=== PATIENT | female | born 1980 | race Caucasian/White ===

== ENCOUNTER → 2019-05-24 13:56 | Outpatient (CLI) | payer OTHER, SELFPAY ==
[2019-05-24 16:00] LABS: Absolute Lymphocyte Count 1.19 X10^3/uL (0.83-4.51); Absolute Neutrophil Count 2.6 X10^3/uL (2.0-7.7); Basophil# 0.03 X10^3/uL; Basophil% 0.7 % (0-1); Eosinophil# 0.09 X10^3/uL; Hematocrit 43.7 % (37-47); Hemoglobin 14.4 g/dL (12.0-15.0); Lymphocyte # 1.19 X10^3/ul (4.0); Lymphocyte % 26.9 % (19-41); Mean Corpuscular Hgb 31.7 pg (27.0-32.0); Mean Corpuscular Volume 96.3 fL (81-99); Mean Platelet Vol. 10.6 fl (6.2-12.0); Monocyte# 0.47 X10^3/uL; Monocyte% 10.6 % (0-10); NRBC Flagged by Analyzer 0 % (0-5); Neutrophil # 2.63 X10^3/uL (2.7-7.7); Neutrophil % 59.6 % (47-70); Platelet Count 198 K/mm3 (150-450); RBC Distribution Width CV 12.2 % (11.6-14.6); RBC Distribution Width SD 42.9 fl (35.1-43.9); Red Blood Count 4.54 M/mm3 (4.2-5.4); White Blood Count 4.4 K/mm3 (4.4-11.0)
[2019-05-24 16:11] LABS: ALB/GLOB Ratio 1.2 RATIO (0.9-2.4); AST(SGOT) 25 U/L (15-37); Alanine Aminotransfer ALT/SGPT 42 U/L (13-56); Albumin, Serum 3.8 g/dL (3.2-5.0); Alkaline Phosphatase 48 U/L (45-117); Anion Gap 8 (5-15); BUN 13 mg/dL (7-18); BUN/Creat Ratio 15.4 RATIO (10-20); Calcium,Total 8.9 mg/dL (8.5-10.1); Chloride 106 mmol/L (98-107); Creatinine, Serum 0.84 mg/dL (0.55-1.02); EST Glomerular Filtration Rate 81 mL/min (>60); Est Glom Filt Rate - Afr Amer 98 mL/min (>60); Free T3 5.2 pg/mL (2.18-3.98); Globulin 3.3 g/dL (2.2-4.2); Glucose 83 mg/dL (74-106); Potassium 3.8 mmol/L (3.5-5.1); Protein, Total 7.1 g/dL (6.4-8.2); Sodium Level 140 mmol/L (136-145); T4 Free Direct 2.39 ng/dL (0.76-1.46); Thyroid Stim Hormone (TSH) 0.07 uIU/mL (0.358-3.74)
== END ==
PROVIDERS: PCP Family Medicine; Referring Provider Family Medicine; Visit Provider Family Medicine
DX: D75.1 Secondary polycythemia (principal); E03.9 Hypothyroidism, unspecified
CPT/HCPCS: 36415; 80053; 84439; 84443; 84481; 85025

== ENCOUNTER 2019-06-05 22:15 | Emergency (ER) | payer OTHER, SELFPAY ==
[2019-06-05 22:15] VITALS: BP 126/75; PULSE 57; RESP 18; TEMP 36.3; O2SAT 99; BMI 23.1
--- NOTE | 2019-06-05 22:54 | CT_ITS ---
STUDY: CT ABDOMEN AND PELVIS WITHOUT CONTRAST REASON FOR EXAM: Female, 38 years old. ABD PAIN AND CRAMPING WITH N/V RADIATION DOSAGE (If Supplied By Facility): CTDIvol = ( 10.02 ) mGy, DLP = ( 328.03 ) mGycm TECHNIQUE: Transaxial images were obtained from the dome of the diaphragm to the symphysis pubis without oral contrast, and without intravenous contrast. Sagittal and coronal images were reconstructed. Individualized dose optimization techniques were used for this CT. COMPARISON: None. FINDINGS: The visualized lung bases are unremarkable. The visualized portions of the heart are within normal limits. Breast implants. Normal liver. Normal gallbladder and extrahepatic biliary system. Normal spleen. Normal pancreas. Normal bilateral adrenal glands. Normal right kidney. 2 mm nonobstructing left renal stone. Normal visualized stomach. Normal small intestine. Probable constipation. There is non-visualization of the appendix. Normal abdominal aorta. Normal inferior vena cava. Normal retroperitoneum. Normal urinary bladder. IUD. Normal abdominal wall. Normal osseous structures. CT/Abdomen/Pelvis W IV Cont ONLY IMPRESSION: No evidence of acute intestinal pathology or acute obstructive uropathy. Probable constipation. Electronically Signed: Jeramy Belle MD at 0:01 EST Tel , Service support ,
--- NOTE | 2019-06-05 22:55 | ED.DCSUM_ITS ---
History of Present Illness Chief Complaint: Abd Pain Narrative: This patient is a 38-year-old female who presents with abdominal pain. She had diarrhea all day yesterday. She developed epigastric abdominal discomfort this morning. Her pain acutely worsened and became severe in the last couple of hours. She vomited shortly before presentation here. No fevers. No history of prior similar symptoms. She only ate some rice and vegetable soup today. She denies alcohol use. No history of GERD. She describes the pain is sharp. It waxes and wanes. Her only abdominal surgery is a history of tubal ligation with salpingectomy which she believes was on the left. She is otherwise treated for hypothyroidism. She is currently on antibiotics since last week for a finger infection. No vaginal bleeding or discharge, she does have Mirena. No urinary symptoms such as dysuria, frequency, urgency. 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 Smoking Status: Never smoker Review of Systems All systems negative except as indicated General: Denies: Fever Eyes: Denies: Visual changes - bilaterally ENT: Denies: Bilateral ear pain Cardiovascular: Denies: Chest pain Respiratory: Denies: Dyspnea Gastrointestinal: Reports: Abdominal pain, Nausea, Vomiting, Diarrhea Musculoskeletal: Denies: Myalgias, Arthralgias Skin: Denies: Rash Neurological: Denies: Headache Endocrine: Denies: Polyuria Hematologic: Denies: Easy bruising Allergy: Denies: Uticaria Physical Exam Vital Signs/Narrative: Vital Signs Temp Pulse Resp BP Pulse Ox 06/05/19 22:15 97.3 F L 57 L 18 126/75 H 99 Inital Vital Signs reviewed: Yes General: Well nourished, Well developed Head: Normocephalic Eyes: EOMI ENT: Moist mucous membranes Neck: Supple Cardiovascular: Regular rate, Regular rhythm Respiratory: No distress, CTA bilaterally Abdomen: Soft, - - Diffuse nonfocal abdominal tenderness which is greatest across the upper abdomen, no focal right upper quadrant pain no Nash's sign or Rovsing sign Extremities: Nontender Skin: Normal color Neurological: Alert Psychological: Normal affect Diagnostic/Tx/Re-eval Impressions Abdomen/Pelvis CT 06/05/19 22:54 IMPRESSION: No evidence of acute intestinal pathology or acute obstructive uropathy. Probable constipation. Electronically Signed: Jeramy Belle MD at 0:01 EST Tel , Service support , 06/05/19 22:54 Abdomen/Pelvis W IV Cont ONLY [CT] Stat Laboratory Results 06/05/19 06/05/19 06/05/19 22:45 22:45 23:00 WBC 9.1 RBC 4.96 Hgb 15.8 H Hct 47.2 H MCV 95.2 MCH 31.9 MCHC 33.5 RDW Std Deviation 40.5 RDW Coeff of Scotty 11.7 Plt Count 235 MPV 10.2 Immature Gran % (Auto) 0.400 Neut % (Auto) 73.0 H Lymph % (Auto) 18.0 L [place] % (Auto) 7.0 Eos % (Auto) 1.2 Baso % (Auto) 0.4 Absolute Neuts (auto) 6.6 Absolute Lymphs (auto) 1.63 Nucleated RBC % 0 Sodium Potassium Chloride Carbon Dioxide Anion Gap BUN Creatinine Estim Creat Clear Calc Est GFR (MDRD) Af Amer Est GFR (MDRD) Non-Af BUN/Creatinine Ratio Glucose Calcium Total Bilirubin AST ALT Alkaline Phosphatase Total Protein Albumin Globulin Albumin/Globulin Ratio Lipase Urine Color Yellow Urine Clarity Clear Urine pH 5.0 Ur Specific [place] 1.025 Urine Protein Negative Urine Glucose (UA) Normal Urine Ketones Negative Urine Occult Blood Negative Urine Nitrite Negative Urine Bilirubin Negative Urine Urobilinogen Normal Ur Leukocyte Esterase Negative Urine RBC 0 SEEN Urine WBC 0 SEEN Ur Squamous Epith Cells 0-5 SEEN Urine Bacteria 0 SEEN Urine Mucus 0 SEEN Urine Test Negative 06/05/19 23:00 WBC RBC Hgb Hct MCV MCH MCHC RDW Std Deviation RDW Coeff of [place] Plt Count MPV Immature Gran % (Auto) Neut % (Auto) Lymph % (Auto) [place] % (Auto) Eos % (Auto) Baso % (Auto) Absolute Neuts (auto) Absolute Lymphs (auto) Nucleated RBC % Sodium 140 Potassium 4.2 Chloride 108 H Carbon Dioxide 26.0 Anion Gap 6 BUN 15 Creatinine 1.03 H Estim Creat Clear Calc 65.20 Est GFR (MDRD) Af Amer 78 Est GFR (MDRD) Non-Af 64 BUN/Creatinine Ratio 14.6 Glucose 93 Calcium 8.8 Total Bilirubin 0.40 AST 29 ALT 51 Alkaline Phosphatase 48 Total Protein 7.3 Albumin 4.0 Globulin 3.3 Albumin/Globulin Ratio 1.2 Lipase 127 Urine Color Urine Clarity Urine pH Ur Specific [place] Urine Protein Urine Glucose (UA) Urine Ketones Urine Occult Blood Urine Nitrite Urine Bilirubin Urine Urobilinogen Ur Leukocyte Esterase Urine RBC Urine WBC Ur Squamous Epith Cells Urine Bacteria Urine Mucus Urine Test - Medical Decision Making Patient was treated with IV fluids, morphine, Zofran. She is symptomatically improved on reevaluation she still has some discomfort but this is at a t olerable level. She is resting comfortably on reevaluation. She has had no further vomiting. CBC, CMP, lipase, urinalysis, CT of the abdomen and pelvis all unremarkable except for some constipation on imaging. was negative. I suspect this was related to bowel spasm. Patient will be provided with prescriptions for Zofran and Bentyl. She was given return precautions and understands to return for new or worsening symptoms and was advised on specific signs and symptoms that should prompt reevaluation. She is comfortable with this plan. Patient discharged. ED Disposition - Plan for ED Patient: Disposition: Home or Assisted Living Diagnosis: Abdominal pain Instructions: ABDOMINAL PAIN, Unknown Cause, (Female) Prescriptions: Dicyclomine HCl [Bentyl] 20 mg PO TIDAC #20 cap Prescription Printed Ondansetron [Zofran Odt] 4 mg PO Q8H PRN PRN #10 tab PRN Reason: Nausea Prescription Printed Referrals: Leo Alexandra MD [Primary Care Provider] -
[2019-06-05] MEDS: Morphine 4 MG/ML Syringe IV (23:05)
[2019-06-05] MEDS: Ondansetron 4 MG/2 ML Vial IV (23:05)
[2019-06-05 23:06] LABS: Bacteria 0 SEEN /hpf (None Seen); Mucous, Urine 0 SEEN /hpf (<or=2+); Red Blood Cells-Urine 0 SEEN /hpf (0-5); White Blood Cells 0 SEEN /hpf (0-5)
[2019-06-05] MEDS: 0.9% Normal Saline 1,000 ML 1000 ML IV (23:06)
[2019-06-05 23:09] LABS: Color, Urine Yellow (Yellow); Glucose, Dipstick Normal (Normal); Ketone-Dipstick Negative (Negative); Leukocyte Esterase-Dipstick Negative /ul (Negative); Nitrite-Dipstick Negative (Negative); Occult Blood-Urine Negative /ul (Negative); Protein-Dipstick Negative (Negative); Specific Gravity, Urine 1.025 (1.002-1.030); Urine Bilirubin Dipstick Negative (Negative); Urine Clarity Clear (Clear); Urine Urobilinogen Normal (Normal)
[2019-06-05 23:11] LABS: Internal QC Validated? YES +Cl - CLEAR BKGD
[2019-06-05 23:11] LABS: Absolute Lymphocyte Count 1.63 X10^3/uL (0.83-4.51); Absolute Neutrophil Count 6.6 X10^3/uL (2.0-7.7); Basophil# 0.04 X10^3/uL; Basophil% 0.4 % (0-1); Eosinophil# 0.11 X10^3/uL; Eosinophils% 1.2 % (0-5); Hematocrit 47.2 % (37-47); Hemoglobin 15.8 g/dL (12.0-15.0); Lymphocyte # 1.63 X10^3/ul (4.0); Mean Corp Hgb Conc 33.5 g/dL (32-36); Mean Corpuscular Hgb 31.9 pg (27.0-32.0); Mean Corpuscular Volume 95.2 fL (81-99); Mean Platelet Vol. 10.2 fl (6.2-12.0); Monocyte# 0.63 X10^3/uL; NRBC Flagged by Analyzer 0 % (0-5); Neutrophil # 6.61 X10^3/uL (2.7-7.7); Platelet Count 235 K/mm3 (150-450); RBC Distribution Width CV 11.7 % (11.6-14.6); RBC Distribution Width SD 40.5 fl (35.1-43.9); Red Blood Count 4.96 M/mm3 (4.2-5.4); White Blood Count 9.1 K/mm3 (4.4-11.0)
[2019-06-05 23:12] LABS: Pregnancy, Urine Negative Negative
[2019-06-05 23:19] LABS: Squamous Epithelial Cells - UA 0-5 SEEN /hpf (5-10)
[2019-06-05 23:23] LABS: ALB/GLOB Ratio 1.2 RATIO (0.9-2.4); AST(SGOT) 29 U/L (15-37); Alanine Aminotransfer ALT/SGPT 51 U/L (13-56); Alkaline Phosphatase 48 U/L (45-117); Anion Gap 6 (5-15); BUN 15 mg/dL (7-18); BUN/Creat Ratio 14.6 RATIO (10-20); Calcium,Total 8.8 mg/dL (8.5-10.1); Chloride 108 mmol/L (98-107); Creatinine, Serum 1.03 mg/dL (0.55-1.02); EST Glomerular Filtration Rate 64 mL/min (>60); Est Glom Filt Rate - Afr Amer 78 mL/min (>60); Globulin 3.3 g/dL (2.2-4.2); Glucose 93 mg/dL (74-106); Lipase 127 U/L (73-393); Potassium 4.2 mmol/L (3.5-5.1); Protein, Total 7.3 g/dL (6.4-8.2); Sodium Level 140 mmol/L (136-145)
[2019-06-06 01:00] VITALS: BP 101/44; PULSE 61; O2SAT 96
[2019-06-06] MEDS: Dicyclomine 10 MG Capsule 20 MG PO (01:33)
[2019-06-06 01:36] VITALS: BP 94/44; PULSE 59; RESP 15; O2SAT 98
== END 2019-06-06 01:36 | disposition home or self-care (01) ==
PROVIDERS: Emergency Provider Emergency Medicine; PCP Family Medicine
DX: R10.13 Epigastric pain (principal); R11.2 Nausea with vomiting, unspecified; R19.7 Diarrhea, unspecified; E03.9 Hypothyroidism, unspecified; Z79.899 Other long term (current) drug therapy
CPT/HCPCS: 74177; 80053; 81001; 81025; 83690; 85025; 96361; 96374; 96375; 99284; J7030; Q9967; J2405

== ENCOUNTER → 2019-08-29 15:30 | Outpatient (CLI) | payer SELFPAY ==
[2019-08-29 17:36] LABS: Absolute Lymphocyte Count 1.71 X10^3/uL (0.83-4.51); Absolute Neutrophil Count 4.6 X10^3/uL (2.0-7.7); Basophil# 0.03 X10^3/uL; Basophil% 0.4 % (0-1); Eosinophils% 1.4 % (0-5); Hematocrit 43.8 % (37-47); Hemoglobin 14.5 g/dL (12.0-15.0); Lymphocyte # 1.71 X10^3/ul (4.0); Lymphocyte % 24.6 % (19-41); Mean Corp Hgb Conc 33.1 g/dL (32-36); Mean Corpuscular Hgb 32.2 pg (27.0-32.0); Mean Corpuscular Volume 97.3 fL (81-99); Mean Platelet Vol. 10.7 fl (6.2-12.0); Monocyte# 0.55 X10^3/uL; Monocyte% 7.9 % (0-10); NRBC Flagged by Analyzer 0 % (0-5); Neutrophil # 4.55 X10^3/uL (2.7-7.7); Neutrophil % 65.4 % (47-70); Platelet Count 199 K/mm3 (150-450); RBC Distribution Width CV 12.4 % (11.6-14.6)
[2019-08-29 17:57] LABS: Ferritin 195 ng/mL (8-252); Iron 122 ug/dL (50-170); Iron Binding Capacity,Total 318 ug/dL (250-450)
[2019-08-29 18:24] LABS: Vitamin B12 498 pg/mL (211-911); Vitamin D,25 Hydroxy 32.4 ng/mL
[2019-08-30 09:37] LABS: T4 Free Direct 1.77 ng/dL (0.76-1.46); Thyroid Stim Hormone (TSH) 0.41 uIU/mL (0.358-3.74)
[2019-08-31 07:17] LABS: Transferrin 214 mg/dL (192-364)
== END ==
PROVIDERS: PCP Family Medicine; Visit Provider Family Medicine
DX: D75.1 Secondary polycythemia (principal); R53.83 Other fatigue; E03.9 Hypothyroidism, unspecified
CPT/HCPCS: 36415; 82306; 82607; 82728; 83540; 83550; 84439; 84443; 84466; 85025

== ENCOUNTER → 2023-07-11 | Outpatient (CLI) | payer SELFPAY ==
--- NOTE | 2023-07-11 07:38 | BI_ITS ---
MAMMOGRAPHY - BILATERAL SCREENING REASON FOR EXAM: Female, 42 years old. Routine annual screening examination. PERTINENT HISTORY: Non-contributory. Bilateral breast implants. TECHNIQUE: Digital bilateral breast sayda (3D mammographic acquisition) in the CC and MLO projections. 2-D mediolateral oblique (MLO) and craniocaudad (CC) views of both breasts were obtained. CAD: Full Field Digital Mammography with Computer Added Detection was performed. COMPARISON: None. Baseline examination. FINDINGS: Breast Composition: There are scattered areas of fibroglandular density. There are no dominant masses or suspicious calcifications. Bilateral breast implants are unremarkable. No other significant abnormalities are identified. BI/SCRN MAMM (CAD)W/SAYDA BILAT IMPRESSION: Negative screening mammogram. Yearly followup mammogram recommended. (A) ASSESSMENT CATEGORY: BIRADS Category 2: Benign. A letter regarding these results will be sent to the patient by the facility within 30 days. Approximately 10% of breast cancers are not detected by mammography. A normal mammogram should not delay biopsy of a clinically suspicious abnormality. [id number] Electronically Signed: Patrick Auguste MD at 10:34 EDT ,
--- OUTSIDE RECORDS SUMMARY | 2023-07-11 07:47 | XMS RPT_ITS | CCD ---
Author Name Unknown Address [address] [place] [address] Organization [facility] Care Team Providers Care Cathode Ray Tube Assembler Name Role Phone Brie Viera Unavailable Mandy Pandya Unavailable Unavailable Unavailable Unavailable Nina Cole Unavailable Unavailable Keely Nguyen Unavailable Unavailable Brie Viera DO Unavailable Cross SAWMILL OR TIMBER YARD WORKER, Keely Unavailable Unavailable Manchak CATALOGUE LIBRARIAN, Elsa Unavailable Unavailable Slarb SAWMILL OR TIMBER YARD WORKER, Niya Unavailable Unavailable Unavailable Unavailable Brie Viera DO Unavailable [phone] Annie Nash MA Unavailable Unavailable Gravius CATALOGUE LIBRARIAN, Teresa Unavailable Unavailable Austin CATALOGUE LIBRARIAN, Kayela Unavailable Unavailable Brie Viera DO Attending Unavailable Brie Viera DO Referring Unavailable Brie Viera DO Consulting Unavailable Medications Completed/Discontinued Medications Medication Drug Class(es) Dates Sig (Normalized) Sig (Original) cholecalciferol 0.05 mg oral capsule (13 sources) Vitamin D Start: 12-28-2013 End: 12-23-2014 take 1 capsule by mouth once daily VITAMIN D, 2000UNIT (Oral Capsule) 1 (one) Capsule Capsule qd for 360 days Refills: 0 Ordered: 29-Jan-2015 Isha Mo RN Start : 28-Dec-2013 End : 23-Dec-2014 Inactive levothyroxine sodium 0.2 mg oral tablet (13 sources) l-Thyroxine Start: 03-05-2022 Synthroid 200 MCG Oral Tablet tad Tablet 1 tab daily and 1.5 tabs on Tuesday, , and Tuesday for 0 days Quantity: 34 {Tablet} Refills: 6 Ordered: 05-Mar-2022 Brie Viera DO, DO, Kathleen Start : 05-Mar-2022 Active Dispense as Written Comments: RODOLFO Problems Active Problems Problem Classification Problem Date Documented Da te Episodic/Chronic Cardiac dysrhythmias (16 sources) Bradycardia; Translations: [Bradycardia] 11-26-2019 Chronic Cardiac dysrhythmias (20 sources) Bradycardia; Translations: [Bradycardia] 06-12-2020 Episodic Fluid and electrolyte disorders (20 sources) Dehydration; Translations: [Dehydration] Resolved: 11-26-2019 11-26-2019 Episodic Genitourinary symptoms and ill-defined conditions (16 sources) Dysuria; Translations: [Dysuria] 12-03-2020 Episodic Malaise and fatigue (20 sources) Fatigue; Translations: [Fatigue] 11-26-2019 Episodic Noninfectious gastroenteritis (20 sources) Gastroenteritis; Translations: [Gastroenteritis ] 06-07-2019 Episodic Nutritional deficiencies (20 sources) Vitamin D deficiency; Translations: [Vitamin D deficiency] 11-26-2019 Chronic Past or Other Problems Problem Classification Problem Date Documented Da te Episodic/Chronic Unclassified (14 sources) Hair loss Unclassified (13 sources) Abortions/Miscarriages; Translations: [Abortions/Miscarriages] 06-07-2019 Results Test Name Value Interpretation Reference Range Facil ity Vital Signs Date Time Vital Sign Value Performing Clinician Facility 06-12-2020 07:10-0500 BMI (Body Mass Index) 23.27 kg/m2 Keely Nguyen LPN [facility] Work Phone: 06-12-2020 07:10-0500 Body weight 59.59 kg Keely Nguyen LPN [facility] Work Phone: 06-12-2020 07:10-0500 BSA (Body Surface Area) 1.62 m2 Keely Nguyen LPN [facility]; [facility] Work Phone: 06-12-2020 07:10-0500 Height 160.02 cm Keely Nguyen LPN [facility] Work Phone: 06-07-2019 12:32-0500 BMI (Body Mass Index) 23.27 kg/m2 Mandy Pandya RN [facility] Work Phone: 06-07-2019 12:32-0500 Body weight 59.59 kg Mandy Pandya RN [facility] Work Phone: 06-07-2019 12:32-0500 BP Diastolic 60 mm[Hg] Mandy Pandya RN [facility] Work Phone: Encounters Encounter Date Encounter Type Care Provider Facility Start: 05-19-2022 ambulatory Brie Maximiliano [facility] Start: 05-19-2022 End: 05-19-2022 Office outpatient visit 15 minutes Brie Maximiliano DO Work Phone: [facility] Start: 04-28-2022 End: 04-28-2022 Phone Encounter Brie Maximiliano DO Work Phone: [facility] Start: 10-28-2021 End: 10-28-2021 Phone Encounter Brie Maximiliano DO Work Phone: [facility] Start: 08-13-2021 End: 08-13-2021 Lab Order Brie Maximiliano DO Work Phone: [facility] Start: 08-12-2021 End: 08-12-2021 Office outpatient visit 5 minutes Brie Maximiliano DO Work Phone: [facility] Start: 08-04-2021 End: 08-04-2021 Phone Encounter Brie Maximiliano DO Work Phone: [facility] Start: 12-03-2020 End: 12-12-2020 Phone Encounter Brie Maximiliano DO Work Phone: [facility] Start: 11-21-2020 End: 11-21-2020 Annotation/Addendum Brie Maximiliano DO Work Phone: [facility] Start: 06-12-2020 End: 06-12-2020 Office outpatient visit 25 minutes Brie Maximiliano [facility] Start: 06-02-2020 End: 06-02-2020 Phone Encounter Brie Maximiliano [facility] Start: 04-22-2020 End: 04-22-2020 Lab Order Brie Maximiliano [facility] Start: 11-26-2019 End: 11-26-2019 Office outpatient visit 15 minutes Brie Viera [facility] Start: 06-07-2019 End: 06-07-2019 Office outpatient visit 15 minutes Brie Viera [facility] Start: 06-30-2015 End: 06-30-2015 Office outpatient visit 5 minutes Brie Viera [facility] Start: 05-14-2015 End: 05-14-2015 Lab Order Brie Viera [facility] Start: 03-19-2014 End: 03-19-2014 Phone Encounter Brie Viera [facility] Start: 01-24-2014 End: 01-24-2014 Office outpatient visit 40 minutes Brieevan Viera [facility] Start: 12-28-2013 End: 12-28-2013 Office outpatient new 60 minutes Brie Maximiliano [facility] Procedures Date Procedure Procedure Detail Performing Clinician Total thyroidectomy Mandy Silvano Long Plan of Treatment Date Care Activity Detail Author Start: 05-19-2022 Procedure Education Eprescribed prescriptions (G8553) [facility]; [facility] Work Phone: Start: 05-19-2022 Provider Instructions for Treatment Reviewed Lab [facility]; [facility] Work Phone: Start: 05-19-2022 25 hydroxy includes fractions if performed CALCIFIDIOL (68994) VIT D 25 [facility]; [facility] Work Phone: Start: 05-19-2022 Cyanocobalamin vitamin b-12 VITAMIN B-12 (CYANOCOBALAMIN) (35509) [facility]; [facility] Work Phone: Start: 05-19-2022 Sedimentation rate rbc non-automated SED RATE ERYTHROCYTE (04327) [facility]; [facility] Work Phone: Start: 05-19-2022 Comprehensive metabolic panel METABOLIC PANEL, COMPREHENSIVE (52955) [facility]; [facility] Work Phone: Start: 05-19-2022 Blood count complete automated CBC (AUTO) (67510) [facility]; [facility] Work Phone: Start: 04-28-2022 Assay of thyroid stimulating hormone tsh TSH (THYROID STIMULATING HORMONE) (82685) [facility]; [facility] Work Phone: Start: 04-28-2022 Assay of triiodothyronine t3 free FREE TRIIDOTHYRONINE (T3) (96675) [facility]; [facility] Work Phone: Start: 04-28-2022 Microsomal antibodies each Anti TPO Antibody (60069) [facility]; [facility] Work Phone: Start: 08-13-2021 25 hydroxy includes fractions if performed CALCIFEDIOL (93217) [facility]; [facility] Work Phone: Start: 08-13-2021 Microsomal antibodies each Anti TPO Antibody (62594) [facility]; [facility] Work Phone: Start: 08-13-2021 Assay of triiodothyronine t3 free T3, FREE (TRIDOTHYRONINE) (72628) [facility]; [facility] Work Phone: Start: 08-13-2021 Assay of free thyroxine T4, FREE (THYROXINE) (35728) [facility]; [facility] Work Phone: Start: 08-13-2021 Assay of thyroid stimulating hormone tsh TSH (THYROID STIMULATING HORMONE) (63342) [facility]; [facility] Work Phone: Start: 08-04-2021 Assay of thyroid stimulating hormone tsh TSH (THYROID STIMULATING HORMONE) (59659) [facility]; [facility] Work Phone: Start: 06-12-2020 Procedure Education Eprescribed prescriptions (G8553) [facility]; [facility] Work Phone: Start: 06-12-2020 Provider Instructions for Treatment Reviewed Lab [facility]; [facility] Work Phone: Start: 06-12-2020 TSH Qn TSH (02507) [facility]; [facility] Work Phone: Start: 06-12-2020 Free T4 [Mass/Vol] T4, FREE (THYROXINE) (24447) [facility]; [facility] Work Phone: Start: 06-12-2020 Free T3 [Mass/Vol] T3, FREE (TRIDOTHYRONINE) (26492) [facility]; [facility] Work Phone: Start: 04-22-2020 Assay of thyroxine total T4, TOTAL (83026) [facility] Work Phone: Start: 04-22-2020 Assay of triiodothyronine t3 free T3, FREE (TRIDOTHYRONINE) (18596) [facility]; [facility] Work Phone: Start: 04-22-2020 Free T3 [Mass/Vol] T3, FREE (TRIDOTHYRONINE) (52253) [facility]; [facility] Work Phone: Start: 04-22-2020 Assay of thyroid stimulating hormone tsh TSH (THYROID STIMULATING HORMONE) (11946) [facility]; [facility] Work Phone: Start: 04-22-2020 TSH Qn TSH (THYROID STIMULATING HORMONE) (51357) [facility]; [facility] Work Phone: Start: 11-26-2019 Blood count complete auto&auto difrntl wbc CBC W/AUTO DIFF WBC (48328) [facility] Work Phone: Start: 11-26-2019 25 hydroxy includes fractions if performed CALCIFEDIOL (94592) [facility] Work Phone: Start: 11-26-2019 Assay of thyroid stimulating hormone tsh TSH (23263) [facility]; [facility] Work Phone: Start: 11-26-2019 TSH Qn TSH (19829) [facility] Work Phone: Start: 11-26-2019 Assay of free thyroxine T4, FREE (THYROXINE) (44636) [facility]; [facility] Work Phone: Start: 11-26-2019 Free T4 [Mass/Vol] T4, FREE (THYROXINE) (43435) [facility] Work Phone: Start: 11-26-2019 Assay of triiodothyronine t3 free T3, FREE (TRIDOTHYRONINE) (60207) [facility]; [facility] Work Phone: Start: 11-26-2019 Free T3 [Mass/Vol] T3, FREE (TRIDOTHYRONINE) (46138) [facility] Work Phone: Start: 06-07-2019 Procedure Education Eprescribed prescriptions (G8553) [facility] Work Phone: Start: 06-30-2015 Patient Education Hypothyroidism: Brief Version *: hypothyroidism [facility] Work Phone: Start: 06-30-2015 Procedure Education Eprescribed prescriptions (G8553) [facility] Work Phone: Start: 03-19-2014 Cortisol total CORTISOL TOTAL (36293) [facility] Work Phone: Start: 03-19-2014 Assay of triiodothyronine t3 free T3, FREE (TRIDOTHYRONINE) (96586) [facility]; [facility] Work Phone: Start: 03-19-2014 Free T3 [Mass/Vol] T3, FREE (TRIDOTHYRONINE) (15448) [facility] Work Phone: Start: 03-19-2014 Assay of free thyroxine T4, FREE (THYROXINE) (51015) [facility]; [facility] Work Phone: Start: 03-19-2014 Free T4 [Mass/Vol] T4, FREE (THYROXINE) (74777) [facility] Work Phone: Start: 03-19-2014 Assay of thyroid stimulating hormone tsh TSH (09286) [facility]; [facility] Work Phone: Start: 03-19-2014 TSH Qn TSH (36583) [facility] Work Phone: Start: 03-19-2014 25 hydroxy includes fractions if performed CALCIFEDIOL (81682) [facility] Work Phone: Start: 01-24-2014 Provider Instructions for Treatment Reviewed Lab [facility] Work Phone: Start: 12-28-2013 Iron binding capacity IRON BINDING CAPACITY (TIBC) (04280) [facility] Work Phone: Start: 12-28-2013 Assay of iron IRON (28528) [facility]; [facility] Work Phone: Start: 12-28-2013 Iron [Mass/Vol] IRON (33676) [facility] Work Phone: Start: 12-28-2013 Assay of ferritin FERRITIN (23914) [facility]; [facility] Work Phone: Start: 12-28-2013 Ferritin [Mass/Vol] FERRITIN (32725) [facility] Work Phone: Start: 12-28-2013 Assay of testosterone free TESTOSTERONE FREE (74878) [facility] Work Phone: [facility] Work Phone: Payers Date Payer Category Payer Unknown [id number] 2015 Unknown [id number] 1982 Unknown [id number] Unknown [employer] Unknown [id number] Unknown [id number] Social History Date Type Detail Facility Alcohol Use: Alcohol Use: [facility] Work Phone: Caffeine Use Caffeine Use [facility] Work Phone: Instructions Note Date & Type Note Facility [facility]; [facility] Work Phone: Instructions Note Date & Type Note Facility [facility]; [facility] Work Phone: Instructions Note Date & Type Note Facility [facility]; [facility] Work Phone: Instructions Note Date & Type Note Facility [facility]; [facility] Work Phone: Instructions Note Date & Type Note Facility [facility]; [facility] Work Phone: Family History No Family History Records FoundUnknown Family Member Name Dates Details Colon Cancer Comments:dads side Status:Active Hypercholesterolemia Comments:both sides of the f amily Status:Active RA Comments:Father. Paternal Un siria. Status:Active Thyroid problems Comments:Paternal Grandmothe r. Status:Active Unknown Family Member Name Dates Details Colon Cancer Comments:dads side Status:Active Hypercholesterolemia Comments:both sides of the f amily Status:Active RA Comments:Father. Paternal Un siria. Status:Active Thyroid problems Comments:Paternal Grandmothe r. Status:Active Unknown Family Member Name Dates Details Colon Cancer Comments:dads side Status:Active Hypercholesterolemia Comments:both sides of the f amily Status:Active RA Comments:Father. Paternal Un siria. Status:Active Thyroid problems Comments:Paternal Grandmothe r. Status:Active Unknown Family Member Name Dates Details Colon Cancer Comments:dads side Status:Active Hypercholesterolemia Comments:both sides of the f amily Status:Active RA Comments:Father. Paternal Un siria. Status:Active Thyroid problems Comments:Paternal Grandmothe r. Status:Active Unknown Family Member Name Dates Details Colon Cancer Comments:dads side Status:Active Hypercholesterolemia Comments:both sides of the f amily Status:Active RA Comments:Father. Paternal Un siria. Status:Active Thyroid problems Comments:Paternal Grandmothe r. Status:Active Unknown Family Member Name Dates Details Colon Cancer Comments:dads side Status:Active Hypercholesterolemia Comments:both sides of the f amily Status:Active RA Comments:Father. Paternal Un siria. Status:Active Thyroid problems Comments:Paternal Grandmothe r. Status:Active Unknown Family Member Name Dates Details Colon Cancer Comments:dads side Status:Active Hypercholesterolemia Comments:both sides of the f amily Status:Active RA Comments:Father. Paternal Un siria. Status:Active Thyroid problems Comments:Paternal Grandmothe r. Status:Active Unknown Family Member Name Dates Details Colon Cancer Comments:dads side Status:Active Hypercholesterolemia Comments:both sides of the f amily Status:Active RA Comments:Father. Paternal Un siria. Status:Active Thyroid problems Comments:Paternal Grandmothe r. Status:Active Unknown Family Member Name Dates Details Colon Cancer Comments:dads side Status:Active Hypercholesterolemia Comments:both sides of the f amily Status:Active RA Comments:Father. Paternal Un siria. Status:Active Thyroid problems Comments:Paternal Grandmothe r. Status:Active Instructions Name Dates Details How to access health informa tion online Indication:Dehydration Start:07-Jun-2019 Instruction Type:Patient Education How to access health informa tion online - Detail Indication:Dehydration Start:07-Jun-2019 Instruction Type:Patient Education Patient Instructions Indication:Dehydration Start:07-Jun-2019 Instruction Type:Provider Instructions for Treatment How to access health informa tion online Indication:Hypothyroidism (acquired) Start:30-Jun-2015 Instruction Type:Patient Education How to access health informa tion online - Detail Indication:Hypothyroidism (acquired) Start:30-Jun-2015 Instruction Type:Patient Education Patient Instructions Indication:Hypothyroidism (acquired) Start:30-Jun-2015 Instruction Type:Provider Instructions for Treatment Patient Instructions Indication:Hypothyroidism (acquired) Start:24-Jan-2014 Instruction Type:Provider Instructions for Treatment How to access health informa tion online - Detail Indication:Hypothyroidism (acquired) Start:24-Jan-2014 Instruction Type:Patient Education How to access health informa tion online Indication:Hypothyroidism (acquired) Start:24-Jan-2014 Instruction Type:Patient Education Name Dates Details How to access health informa tion online Indication:Dehydration Start:07-Jun-2019 Instruction Type:Patient Education How to access health informa tion online - Detail Indication:Dehydration Start:07-Jun-2019 Instruction Type:Patient Education Patient Instructions Indication:Dehydration Start:07-Jun-2019 Instruction Type:Provider Instructions for Treatment How to access health informa tion online Indication:Hypothyroidism (acquired) Start:30-Jun-2015 Instruction Type:Patient Education How to access health informa tion online - Detail Indication:Hypothyroidism (acquired) Start:30-Jun-2015 Instruction Type:Patient Education Patient Instructions Indication:Hypothyroidism (acquired) Start:30-Jun-2015 Instruction Type:Provider Instructions for Treatment Patient Instructions Indication:Hypothyroidism (acquired) Start:24-Jan-2014 Instruction Type:Provider Instructions for Treatment How to access health informa tion online - Detail Indication:Hypothyroidism (acquired) Start:24-Jan-2014 Instruction Type:Patient Education How to access health informa tion online Indication:Hypothyroidism (acquired) Start:24-Jan-2014 Instruction Type:Patient Education Name Dates Details How to access health informa tion online Indication:Dehydration Start:07-Jun-2019 Instruction Type:Patient Education How to access health informa tion online - Detail Indication:Dehydration Start:07-Jun-2019 Instruction Type:Patient Education Patient Instructions Indication:Dehydration Start:07-Jun-2019 Instruction Type:Provider Instructions for Treatment How to access health informa tion online Indication:Hypothyroidism (acquired) Start:30-Jun-2015 Instruction Type:Patient Education How to access health informa tion online - Detail Indication:Hypothyroidism (acquired) Start:30-Jun-2015 Instruction Type:Patient Education Patient Instructions Indication:Hypothyroidism (acquired) Start:30-Jun-2015 Instruction Type:Provider Instructions for Treatment Patient Instructions Indication:Hypothyroidism (acquired) Start:24-Jan-2014 Instruction Type:Provider Instructions for Treatment How to access health informa tion online - Detail Indication:Hypothyroidism (acquired) Start:24-Jan-2014 Instruction Type:Patient Education How to access health informa tion online Indication:Hypothyroidism (acquired) Start:24-Jan-2014 Instruction Type:Patient Education Name Dates Details How to Access Health Informa tion Online using Patient Portal and [employer] Apps Indication:Nonsmoker Start:12-Jun-2020 Instruction Type:Patient Education Patient Instructions Indication:Nonsmoker Start:12-Jun-2020 Instruction Type:Provider Instructions for Treatment How to access health informa tion online Indication:Dehydration Start:07-Jun-2019 Instruction Type:Patient Education How to access health informa tion online - Detail Indication:Dehydration Start:07-Jun-2019 Instruction Type:Patient Education Patient Instructions Indication:Dehydration Start:07-Jun-2019 Instruction Type:Provider Instructions for Treatment How to access health informa tion online Indication:Hypothyroidism (acquired) Start:30-Jun-2015 Instruction Type:Patient Education How to access health informa tion online - Detail Indication:Hypothyroidism (acquired) Start:30-Jun-2015 Instruction Type:Patient Education Patient Instructions Indication:Hypothyroidism (acquired) Start:30-Jun-2015 Instruction Type:Provider Instructions for Treatment Patient Instructions Indication:Hypothyroidism (acquired) Start:24-Jan-2014 Instruction Type:Provider Instructions for Treatment How to access health informa tion online - Detail Indication:Hypothyroidism (acquired) Start:24-Jan-2014 Instruction Type:Patient Education How to access health informa tion online Indication:Hypothyroidism (acquired) Start:24-Jan-2014 Instruction Type:Patient Education Summary Purpose Advance Directives No Advanced Directives Records Found Additional Source Comments INFORMATION SOURCE (unrecogn ized section and content) FOR RECORDS PERTAINING TO PATIENTS WHO ARE OR HAVE BEEN ENROLLED IN A CHEMICAL DEPENDENCY/SUBSTANCEABUSE PROGRAM, SOME INFORMATION MAY BE OMITTED. This clinical summary was aggregated from multiple sources. Caution should be exercised in using it in the provision of clinical care. This summary normalizes information from multiple sources, and as a consequence, information in this document may materially change the coding, format and clinical context of patient data. In addition, data may be omitted in some cases. CLINICAL DECISIONS SHOULD BE BASED ON THE PRIMARY CLINICAL RECORDS. [facility] [employer] [facility]. provides no warranty or guarantee of the accuracy or completeness of information in this document.
== END | disposition home or self-care (01) ==
PROVIDERS: PCP Internal Medicine; Referring Provider Internal Medicine; Visit Provider Internal Medicine
DX: Z12.31 Encounter for screening mammogram for malignant neoplasm of breast (principal)
CPT/HCPCS: 77063; 77067